=== PATIENT | female | born 1970 | race Caucasian/White ===

== ENCOUNTER → 2017-06-28 | Outpatient (CLI) | payer OTHER ==
[~2017-06-28] MED LIST: CLON.5; CYCL10 PO; DULO60; HYDACE5 PO; HYDR1TAB94; IBUP600; IBUP600 PO; LEVSOD100; LEVSOD88 PO; MEDR10; RXCYCL10 PO; RXHYDACE PO
== END | disposition home or self-care (01) ==
LOC: LAB SHORT 08:16 → PLD 08:16
DX: D22.5 Melanocytic nevi of trunk (principal); L81.4 Other melanin hyperpigmentation; L57.8 Other skin changes due to chronic exposure to nonionizing radiation
CPT/HCPCS: 88305

== ENCOUNTER 2018-01-13 11:22 | Day surgery (SDC) | payer OTHER ==
[~2018-01-13] VITALS: Ht 165.1 cm; Wt 72.4 kg
== END 2018-01-13 15:40 | disposition home or self-care (01) ==
LOC: ORSCSDS 11:22
PROVIDERS: Podiatrist
PROC: 0QSP04Z Reposition Left Metatarsal with Internal Fixation Device, Open Approach (ICD-10-PCS; principal; 2018-01-13 12:30)
PROC: 0SGQ0ZZ (ICD-10-PCS; principal; 2018-01-13 12:30)
PROC: 0QSR04Z Reposition Left Toe Phalanx with Internal Fixation Device, Open Approach (ICD-10-PCS; principal; 2018-01-13 12:30)
DX: M20.12 Hallux valgus (acquired), left foot (principal); M21.622 Bunionette of left foot; M20.40 Other hammer toe(s) (acquired), unspecified foot; E03.9 Hypothyroidism, unspecified; Z79.899 Other long term (current) drug therapy
CPT/HCPCS: C1713; J0690; J2250; J2710; J3010; J7120